=== PATIENT | female | born 1955 | race Caucasian/White ===

== ENCOUNTER → 2023-01-03 09:28 | Outpatient (BNVA) | payer OTHER, SELFPAY | PROVIDERS: Referring Provider Nurse Practitioner Family; Visit Provider Psychiatry & Neurology Neurology | DX: R94.02 Abnormal brain scan (principal); R29.818 Other symptoms and signs involving the nervous system | CPT/HCPCS: 36415; 81241; 83090; 85210; 85613; 85730; 86146; 86147; 99203 ==

== ENCOUNTER 2023-02-02 10:45 | Outpatient (CLI) | payer OTHER, SELFPAY ==
--- NOTE | 2023-02-02 11:15 | USCV_ITS ---
Kathy Bowden Age: 67 Gender: F : 1955 Exam Date: 02/02/2023 11:30 Ordering Phys: Shyam De La Paz MD Technologist: MARY Exam Location: [facility] [place] Indication: Abnormal brain scan Risk Factors: Previous Vascular Surgery: Right Brachial BP: / Left Brachial BP: / Right Left Velocity (cm/s) Spectral Plaque Velocity (cm/s) Spectral Plaque Syst/Diast Broadening Syst/Diast Broadening 66.20/ 20.90 Prox CCA 110.30/ 28.70 61.40/ 16.30 Mid CCA 111.40/ 30.90 69.10/ 26.40 Distal CCA 84.30 / 30.20 41.80/ 14.10 Prox ICA 62.40 / 17.70 52.90/ 17.00 Mid ICA 57.20 / 22.90 67.50/ 31.00 Distal ICA 61.40 / 27.00 62.40 ECA 113.40 0.98 ICA/CCA 0.56 Antegrade Vertebral Antegrade 46.00/ 13.10 cm/s 70.10/ 31.40 cm/s Tri Subclavian Tri 121.3 122.8 0 0 CONCLUSIONS Right ICA stenosis <50%. Left ICA stenosis <50%. Normal antegrade Doppler flow noted in the right vertebral artery. Normal antegrade Doppler flow noted in the left vertebral artery. Freddy Calvo MD (Electronically Signed) Final Date: 02 February 2023 15:44 S
== END 2023-02-02 10:46 | disposition home or self-care (01) ==
LOC: RAD 10:45
PROVIDERS: Visit Provider Psychiatry & Neurology Neurology
DX: R94.02 Abnormal brain scan (principal); I65.23 Occlusion and stenosis of bilateral carotid arteries
CPT/HCPCS: 93880

== ENCOUNTER → 2023-05-30 12:49 | Outpatient (BNVA) | payer OTHER, SELFPAY | PROVIDERS: Visit Provider Psychiatry & Neurology Neurology | DX: I67.82 Cerebral ischemia (principal); R29.818 Other symptoms and signs involving the nervous system; Z98.890 Other specified postprocedural states | CPT/HCPCS: 99212 ==

== ENCOUNTER → 2023-12-04 13:15 | Outpatient (BNVA) | payer OTHER, SELFPAY | PROVIDERS: Visit Provider Psychiatry & Neurology Neurology | DX: M79.642 Pain in left hand (principal); R20.0 Anesthesia of skin; I67.82 Cerebral ischemia; R29.818 Other symptoms and signs involving the nervous system; Z98.890 Other specified postprocedural states; M25.532 Pain in left wrist; M79.601 Pain in right arm; R26.81 Unsteadiness on feet; G56.22 Lesion of ulnar nerve, left upper limb; M79.632 Pain in left forearm; R29.898 Other symptoms and signs involving the musculoskeletal system; M79.602 Pain in left arm; M62.58 Muscle wasting and atrophy, not elsewhere classified, other site; G56.03 Carpal tunnel syndrome, bilateral upper limbs; R20.2 Paresthesia of skin | CPT/HCPCS: 95911; 99212 ==

== ENCOUNTER → 2024-01-29 13:04 | Outpatient (BNVA) | payer OTHER, SELFPAY | PROVIDERS: PCP Obstetrics & Gynecology; Visit Provider Physician Assistant | DX: G56.03 Carpal tunnel syndrome, bilateral upper limbs (principal); G56.22 Lesion of ulnar nerve, left upper limb | CPT/HCPCS: 73110; 99203 ==

== ENCOUNTER → 2024-06-04 10:39 | Outpatient (BNVA) | payer OTHER, SELFPAY | PROVIDERS: PCP Obstetrics & Gynecology; Visit Provider Student in an Organized Health Care Education/Training Program | DX: R20.2 Paresthesia of skin (principal); G56.22 Lesion of ulnar nerve, left upper limb; G56.03 Carpal tunnel syndrome, bilateral upper limbs | CPT/HCPCS: 99214 ==

== ENCOUNTER → 2024-07-22 13:58 | Outpatient (BNVA) | payer OTHER, SELFPAY | PROVIDERS: PCP Obstetrics & Gynecology; Visit Provider Physician Assistant | DX: G56.22 Lesion of ulnar nerve, left upper limb (principal); G56.03 Carpal tunnel syndrome, bilateral upper limbs | CPT/HCPCS: 99213 ==

== ENCOUNTER 2024-08-07 05:46 | Day surgery (SDC) | payer OTHER, SELFPAY ==
[2024-08-07] VITALS (10 sets, daily range): BP systolic 102–149; BP diastolic 53–101; PULSE 60–78; RESP 12–23; TEMP 36.1–36.9; O2SAT 92–97
[2024-08-07] MEDS: sodium chloride 0.9% 1,000 ML 30 ML IV (06:14)
[2024-08-07] MEDS: acetaminophen 1,000 MG/100 ML PIGGYBACK 400 MG IV (06:16)
--- NOTE | 2024-08-07 06:47 | ANES.PREANE2 ---
Pre-Anesthetic Assessment Height/Weight: Height 5 ft 6.5 in Weight 184 lb Temp Pulse Resp BP Pulse Ox O2 Del Method 98.4 F 60 18 149/72 97 Room Air 08/07/24 06:03 08/07/24 06:03 08/07/24 06:03 08/07/24 06:03 08/07/24 06:03 08/07/24 06:03 Preop Diagnosis: Carpal tunnel syndrome Operation Date: 08/07/24 07:00 Proposed Procedures p Cubital Tunnel Release(Left) - Vince Lorena, DO s POSSIBLE Ulnar Nerve Transposition(Left) - Vince Tulare, DO s Proximal forearm Median Nerve Release(Left) - Vince Tulare, DO Was Beta Karely taken within 24 hours: Yes Was Clonidine taken within 24 hours: N/A Last intake: Intake Last Liquid Date 08/06/24 Last Liquid Time 20:00 Last Solid Date 08/06/24 Last Solid Time 19:00 Social No alcohol and No tobacco Exam alert, oriented x 3 and clear to auscultation bilaterally A-fib Airway Submandibular: within normal limits Cervical ROM: within normal limits Mallampati: Class II Dentition: full Anesthetic Plan ASA status: 3 Anesthesia: General and Regional (specify below) Other: No prior issues with anesthesia NPO since yesterday evening History of A-fib on chronic Eliquis. 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 No weakness noted Patient admits to postnasal drip but denies any lung problems Pretty active individual Plan for general anesthesia with preop nerve block Medications/Allergies Home Medications ?Medication ?Instructions ?Recorded ?Confirmed ?Last Taken ?Type dronedarone 400 mg tablet 400 mg PO BID 01/03/23 08/05/24 08/05/24 History magnesium oxide 400 mg (241.3 mg 400 mg PO DAILY 01/03/23 08/05/24 08/05/24 History magnesium) tablet meloxicam 15 mg tablet 15 mg PO DAILY 01/03/23 08/05/24 Unknown History metoprolol tartrate 25 mg tablet 25 mg PO DAILY 01/03/23 08/05/24 08/05/24 History pantoprazole 40 mg tablet,delayed 40 mg PO PRN PRN Acid Reflux 01/03/23 08/05/24 Unknown History release umeclidinium 62.5 mcg-vilanterol 1 inh inhalation DAILY 01/03/23 08/07/24 08/07/24 History 25 mcg/actuation powdr for inhalation (Anoro Ellipta) apixaban 2.5 mg tablet (Eliquis) 5 mg PO BID 05/30/23 08/05/24 07/31/24 History pregabalin 25 mg capsule (Lyrica) 25 mg PO DAILY 05/30/23 08/05/24 08/05/24 History alendronate 70 mg tablet 70 mg PO .weekly 12/04/23 08/05/24 Unknown History folic acid 1 mg tablet 1 mg PO DAILY 12/04/23 08/05/24 08/05/24 History methotrexate sodium 2.5 mg tablet 7.5 mg PO .weekly 12/04/23 08/05/24 08/03/24 History albuterol 90 mcg inhalation BID PRN 08/05/24 08/05/24 Unknown History Shortness Of Breath Allergies Allergy/AdvReac Type Severity Reaction Status Date / Time budesonide (From Breztri Allergy ADR-Shakine Verified 08/07/24 05:58 Aerosphere) ss cephalexin (From Keflex) Allergy Unconscious Verified 07/22/24 14:22 formoterol (From Breztri Allergy ADR-Shakine Verified 08/07/24 05:58 Aerosphere) ss glycopyrrolate (From Breztri Allergy ADR-Shakine Verified 08/07/24 05:58 Aerosphere) ss hydromorphone (From Dilaudid) Allergy ADR-Halluci Verified 07/22/24 14:22 nating hydroxychloroquine Allergy Unconscious Verified 07/22/24 14:22 ibuprofen (From Motrin) Allergy Unknown Verified 07/22/24 14:22 olodaterol (From Stiolto Allergy Unknown Verified 08/05/24 14:00 Respimat) Penicillins Allergy Unconscious Verified 07/22/24 14:22 Sulfa (Sulfonamide Allergy Unconscious Verified 07/22/24 14:22 Antibiotics) sulfamethoxazole Allergy Unconscious Verified 07/22/24 14:22 tiotropium (From Stiolto Allergy Unknown Verified 08/05/24 14:00 Respimat) trimethoprim (From Bactrim) Allergy Unknown Verified 07/22/24 14:22 Current Medications Generic Name Dose Route Start Last Admin Trade Name Gio PRN Reason Stop Dose Admin Sodium Chloride 1,000 mls @ 30 mls/hr 08/07/24 06:00 08/07/24 06:14 Sodium Chloride 0.9% IV 08/08/24 05:59 30 mls/hr .Q24H SUHAS Administration PFSH Anesthesia Family History Mother , lumpectomy unsure if cancer at age 92 No problems noted. Father , at age 79 Lung disease Social History Smoking and tobacco/nicotine status: never used tobacco/nicotine Alcohol intake: never Substance/Drug Use: never
--- NOTE | 2024-08-07 07:01 | W.PM.OPSUD ---
Surgery/Procedure H&P Update DATE OF PROCEDURE: August 07, 2024 DATE H&P PERFORMED: 07/22/24 H&P UPDATE INFORMATION: I have reviewed H&P completed within last 30 days, I have examined patient prior to procedure and No changes to prior documentation PREOP DIAGNOSIS: Left cubital tunnel syndrome, left proximal forearm median nerve entrapment PRIMARY INDICATION FOR PROCEDURE: Left cubital tunnel syndrome, left proximal forearm median nerve entrapment PLANNED PROCEDURE: Operation Date: 08/07/24 07:00 Proposed Procedures p Cubital Tunnel Release(Left) - Vince Carrillo DO s POSSIBLE Ulnar Nerve Transposition(Left) - DO naheed Cm Proximal forearm Median Nerve Release(Left) - Vince Carrillo DO
[2024-08-07] MEDS: clindamycin 600 MG/50 ML PREMIX 200 MG IV (07:02)
--- NOTE | 2024-08-07 07:45 | ANES.PROC ---
Anesthesia Procedures Procedure/Date: 08/07/24 Nerve Block ^: Nerve Block 1: Main Anesthesia: general anesthesia Time Out Performed: Yes Consent: requested by attending/covering physician and from patient Nerve block location: supraclavicular Anesthesia monitors applied: pulse oximetry, EKG, BP cuff and oxygen Nerve block position: supine Anesthetic Used: ropivicaine 0.5% Amount of anesthesia used (mL): 30 Ultrasound used to: recognize landmarks Nerve Stimulator Used?: Yes Interscalene/Femoral BLK: other needle (pjunk 4inch) Injection: neg aspiration of heme Patient Tolerated Procedure: well Complications: none
--- NOTE | 2024-08-07 08:54 | W.PM.BPON ---
Date of Procedure: 08/07/2024 Surgeon: Vince Carrillo DO Body Bumper(s): None Procedure(s) performed: Left cubital tunnel release (ulnar nerve decompression at the elbow) Left proximal forearm median nerve release Findings of the procedure(s): Patient underwent procedure as planned without issues or complications, no evidence of ulnar nerve subluxation. No transposition performed Estimated blood loss: 15 mL Specimen(s) removed: None Post-operative diagnosis: Left cubital tunnel syndrome, left proximal forearm median nerve entrapment
--- NOTE | 2024-08-07 08:57 | PM.OP ---
Operative Report Date of procedure: August 07, 2024 Surgeon: Vince Carrillo DO Procedure: Preoperative diagnosis: Left?cubital?tunnel?syndrome Left proximal forearm median nerve entrapment Post-op diagnosis:? Left?cubital?tunnel?syndrome Left proximal forearm median nerve entrapment Post-op findings: See operative note Procedure done: Left cubital tunnel release (ulnar nerve decompression at the elbow) Left proximal forearm median nerve release Surgeon: Vince Carrillo DO Estimated blood loss: 15 cc Tourniquet Time: 56 minutes IV fluids: See anesthesia record Complications: None Findings: See operative report narrative Condition: stable Disposition: same day Brief History: Patient is a pleasant 69-year-old female was seen evaluated in the outpatient setting for Left ulnar nerve neuropathy at the elbow as well as clinical findings consistent with left median nerve entrapment at the forearm.? Her nerve study does not show any signs of ulnar nerve paresthesias but has classic physical exam findings, as well as physical exam findings for left median nerve entrapment at the forearm. On my examination in the office patient findings are consistent with this preoperative diagnosis. We had detailed discussion in office about continued nonoperative intervention versus operative intervention.? Patient understands the risk benefits complications alternatives to surgical and nonsurgical treatment options.? Patient understands the risks include but not limited to make it better, make it worse, infection, permanent injury to nerve, decreased function and sensation to the hand with persistent weakness.? Given these risks patient understands and agrees to proceed with current plan.? Patient elects to proceed with a Left?cubital?tunnel?release with possible ulnar nerve transposition, and left proximal forearm median nerve release. all questions answered. Procedure: Patient was seen and evaluated in the preoperative holding area.? The consent that was filled out in office was reviewed with patient and confirmed to be appropriate for Left ulnar nerve?cubital?tunnel?release and possible ulnar nerve transposition.? Correct extremity was then marked.? Patient was seen evaluated by the preoperative team as well as anesthesia department.? Once cleared for surgery patient was then taken to the operative suite and transported onto the operative table all bony prominences were well-padded and patient was secured to the table.? Left upper extremity was placed on an armboard.? Patient then underwent anesthesia per the anesthesia department. The Left upper extremity tourniquet was applied. Patient's Left upper extremity was then prepped and draped in standard orthopedic fashion.? i This point a final timeout was performed. Patient received appropriate preop antibiotics. Esmarch tourniquet was used to exsanguinate the operative extremity and was insufflated to 250 mmHg.? Standard curvilinear incision was made centering over the ulnar nerve between the medial epicondyle and olecranon process.? Sharp scalpel excision through skin and subcutaneous tissue was performed.? Once I encountered subcutaneous tissue I then utilized dissection scissors to spread in the path of the [facility] and care was made to protect any nerve branches throughout this case.? I then utilized a scalpel to complete my dissection directly on over to the flexor pronator mass and elevated this fat tissue directly off of the fascia.? I started my dissection of the ulnar nerve the nerve proximally.? Once identified I then utilized Littler dissection scissors and decompress the nerve completely and proximally and utilized blunt dissection to make sure there was no entrapment proximally..? Once decompressed proximally I then traced the nerve distal through Armstrong's ligament and as it entered the FCU fascia aponeurosis and completed by decompression and ulnar nerve neurolysis distally.? The nerve was completely released in situ no areas of entrapment I was able to place my finger distally and proximally with no areas entrapment along the nerve.? At this point in time by in situ release was completed I then subsequently took the elbow through range of motion and and there was no evidence of ulnar nerve subluxation as result no transposition needed.?? At this point in time wound was thoroughly irrigated and a wet sponge was placed in wound bed. At this point time I proceeded with the proximal forearm median nerve release. Standard lazy S-shaped incision was made centering over the mid substance of the forearm. At this point in time sharp stab incision was made through skin only switch to Littler dissection scissors to dissect through the subcutaneous tissue protected all cutaneous nerve branches. At this point time came down directly over the fascia. This point in time identified the neurovascular bundle of the radial artery. At this point in time I dissected through the fascia both proximally and distally to open up the neurovascular plane. At this point in time I subsequently carried my dissection further radially to identify the superficial pronator and patient was found to have significantly talked pronator as a result for adequate release and decompression I subsequently performed a step lengthening of just the fascia of the superficial pronator teres. This was then performed and patient had good release of tension distally. At this point in time I then subsequently moved my dissection approximately. I worked on the ulnar aspects of the radial artery dissecting proximally. At this point in time patient was found to have a significant lacertus fibrosis which was subsequently released and decompressed which was a definite sign of compression proximally. I then identified the median nerve and then tracked my dissection distally care was made to maintain exact hemostasis throughout the procedure. I subsequently carried my dissection and released all taut fascial bands and tissue over the median nerve right to the deep pronator teres fascial band which was not thickened and taut sheath which was subsequently released under careful loop magnification and release with dissection scissors at this point in time I was able to take my finger and slide up the nerve proximally and distally with no taut bands on the median nerve this had satisfactory release of the proximal forearm median nerve. ?Wound bed was then thoroughly irrigated.? Tourniquet was deflated.? Maintained exact hemostasis with bipolar electrocautery.? The skin was reapproximated with interrupted Vicryl subcutaneous suture 3-0.? I next utilized a running horizontal mattress stitch with 3-0 nylon.? Extremity was then cleaned and the incision was then covered with Xeroform 4 x 4's ABD Curlex and soft roll and a Lucas wrap was then applied with an Lucas wrap.? Patient was then awakened from anesthesia and taken to PACU in stable condition. Disposition: Patient taken to PACU in stable condition.? Patient given appropriate discharge instructions as well as pain medication.? ?Patient will see orthopedics in office in 2 weeks.? pt understands? if they has any questions they can contact the office.
--- NOTE | 2024-08-07 10:30 | ANE.PACU2 ---
Inpatient post-anesthesia follow up: Airway intact: Yes Vital signs: Temperature 97.0 F Pulse Rate 63 Respiratory Rate 18 Blood Pressure 140/101 Pulse Oximetry 94 Oxygen Delivery Me thod Room Air Oxygen Flow Rate Fraction of Inspir ed Oxygen Hydration adequate: Yes Nausea and vomiting: No Pain level: 1 Mental status: Baseline
== END 2024-08-07 10:30 | disposition home or self-care (01) ==
PROVIDERS: PCP Obstetrics & Gynecology; Visit Provider Student in an Organized Health Care Education/Training Program
PROC: (CPT 64718; principal; 2024-08-07 07:00)
PROC: (CPT 64721; 2024-08-07 07:00)
DX: G56.22 Lesion of ulnar nerve, left upper limb (principal); G56.02 Carpal tunnel syndrome, left upper limb; I48.91 Unspecified atrial fibrillation; Z79.01 Long term (current) use of anticoagulants; I10 Essential (primary) hypertension
CPT/HCPCS: 64718; 64721; J0131; J1100; J2405; J2704; J2795; J3010; J3490; J7030; J9999

== ENCOUNTER → 2024-08-19 10:32 | Outpatient (BNVA) | payer OTHER, SELFPAY | PROVIDERS: PCP Obstetrics & Gynecology; Visit Provider Physician Assistant | DX: Z98.890 Other specified postprocedural states (principal) | CPT/HCPCS: 99024 ==

== ENCOUNTER → 2024-09-30 10:31 | Outpatient (BNVA) | payer OTHER, SELFPAY | PROVIDERS: PCP Obstetrics & Gynecology; Visit Provider Physician Assistant | DX: Z98.890 Other specified postprocedural states (principal) | CPT/HCPCS: 99024 ==

== ENCOUNTER → 2024-12-30 10:19 | Outpatient (BNVA) | payer OTHER, SELFPAY | PROVIDERS: PCP Obstetrics & Gynecology; Visit Provider Student in an Organized Health Care Education/Training Program | DX: G56.22 Lesion of ulnar nerve, left upper limb (principal); G56.03 Carpal tunnel syndrome, bilateral upper limbs | CPT/HCPCS: 20605; 99213; J3301; J3490 ==

== ENCOUNTER 2025-01-08 10:11 | Outpatient (CLI) | payer OTHER, SELFPAY ==
--- NOTE | 2025-01-08 10:15 | CTR_ITS ---
PROCEDURE INFORMATION: Exam: CT Left Upper Extremity Without Contrast, Wrist Exam date and time: 01/08/2025 10:34 AM Age: 69 years old Clinical indication: Pain; Prior surgery; Surgery date: 1-6 months; Surgery type: Left wrist; Rule out hardware movement, impaired healing; Additional info: Rule out hardware movement, impaired healing, rule out hardware movement, impaired healing TECHNIQUE: Imaging protocol: Computed tomography of the left upper extremity without contrast. Exam focused on the wrist. Radiation optimization: All CT scans at this facility use at least one of these dose optimization techniques: automated exposure control; mA and/or kV adjustment per patient size (includes targeted exams where dose is matched to clinical indication); or iterative reconstruction. COMPARISON: CR XR wrist LT min 3V* [id number] 01/29/2024 1:07 PM RADIATION DOSE METRICS: Total DLP (mGy-cm): 104.28 FINDINGS: Bones/joints: There are postoperative changes involving the distal radius. There is a palmar plate with multiple screws. No definite hardware fracture or displacement is appreciated. No definite lucency is seen along the screws. There appears to be bony bridging across the distal radius fracture. There is irregularity involving the articular surface of the distal radius. No new fractures are appreciated. There is no evidence of a dislocation. There is widening of the scapholunate interspace suggesting a scapholunate ligament disruption. There is joint space narrowing with osteophyte formation most pronounced involving the 1st carpometacarpal joint and to a lesser degree the articulation of the distal scaphoid with the trapezium. Joint spaces are otherwise relatively well preserved. Soft tissues: No definite acute appearing soft tissue abnormalities are identified. CT/CT wrist LT wo con* [id number] IMPRESSION: 1. Postoperative change involving the distal radius. No definite hardware complications are appreciated. There does appear to be bony bridging across the fracture site. There is irregularity involving the articular surface of the distal radius. 2. Widening of the scapholunate interspace. 3. Osteoarthritis.
== END 2025-01-08 10:12 | disposition home or self-care (01) ==
LOC: RAD 10:12
PROVIDERS: PCP Obstetrics & Gynecology; Visit Provider Student in an Organized Health Care Education/Training Program
DX: M25.532 Pain in left wrist (principal)
CPT/HCPCS: 73200